=== PATIENT | female | born 1965 | race Caucasian/White ===

== ENCOUNTER 2017-04-20 16:01 | Emergency (ER) | payer MEDICAID ==
[~2017-04-20] VITALS: Ht 158.8 cm; Wt 109.7 kg
[~2017-04-20 16:01] MED LIST: IRON1TAB60 PO; METF10002 PO
[2017-04-20 16:02] VITALS: BP 147/82
== END 2017-04-20 18:09 | disposition home or self-care (01) ==
LOC: ED 18:00
DX: M25.561 Pain in right knee (principal); E11.9 Type 2 diabetes mellitus without complications; Z88.0 Allergy status to penicillin
CPT/HCPCS: 36415; 82962; 84703; 85025; 99285

== ENCOUNTER 2018-08-19 13:55 | Emergency (ER) | payer SELFPAY ==
[~2018-08-19] VITALS: Ht 157.5 cm; Wt 122.0 kg
[2018-08-19] MEDS ORDERED: ALBUTEROL/IPRATROPIUM 2.5MG/0.5MG, 3 ML NPPB ONE (14:30)
[2018-08-19] MEDS ORDERED: ALBUTEROL/IPRATROPIUM 2.5MG/0.5MG, 3 ML ONE (14:46)
[2018-08-19 15:02] VITALS: BP 148/84
== END 2018-08-19 15:04 | disposition home or self-care (01) ==
LOC: ED 14:50
DX: B34.9 Viral infection, unspecified (principal); E11.9 Type 2 diabetes mellitus without complications; Z88.0 Allergy status to penicillin
CPT/HCPCS: 71046; 82962; 94640; 99284; J7512; J7620